=== PATIENT | female | born 1950 | race Caucasian/White ===

== ENCOUNTER 2017-02-27 18:20 | Inpatient (IN) | payer MEDICARE, OTHER ==
[~2017-02-27] VITALS: Ht 172.7 cm; Wt 88.4 kg
--- NOTE | ~2017-02-27 | CON ---
PATIENT'S NAME: MILVIA GREGORY [facility] AGE: 67 Y [address] ROOM: [place] [address] LOCATION: GPCU ADMIT DATE: 02/27/2017 Consultation DISCHARGE DATE: FAMILY PHYSICIAN: BEBA CASH MD ATTENDING PHYSICIAN: KVNG HAIDER DATE OF CONSULTATION: 02/28/2017 REASON FOR CONSULT: Jaundice, suspected choledocholithiasis. HISTORY OF PRESENT ILLNESS: This is a 67-year-old female, who was admitted through emergency room in view of severe abdominal pain. She was evaluated by ER physician and underwent blood work, which revealed evidence of biliary obstruction with total bilirubin of 2.8, alkaline phosphatase 145, AST 1634, and ALT 1174. Her amylase and lipase values were normal. A CT scan of the abdomen revealed cholelithiasis and intrahepatic biliary dilatation. The patient was admitted to the hospitalist's service, and has done well post-hospitalization with no evidence of fever or chills, but followup labs continued to show elevated liver test with total bilirubin up to 3.2 this morning. The patient is otherwise pain free. Her AST and ALT are markedly elevated. PAST MEDICAL HISTORY: She denies any similar issues with abdominal pain. She does have history of colon polyp and hypothyroidism. MEDICATIONS: As noted in MAR. SOCIAL HISTORY: Negative for smoking, quit several years ago. Denies alcohol or drug abuse. FAMILY HISTORY: Colon cancer. REVIEW OF SYSTEMS: The 10-point review of system otherwise negative except as noted in the HPI. PHYSICAL EXAMINATION: GENERAL: A well-developed, well-nourished female, in no distress. She is afebrile. VITAL SIGNS: Stable. HEENT: Reveals mildly icteric sclerae bilaterally. Pupils round and reactive. PATIENT'S NAME: MILVIA GREGORY [facility] AGE: 67 Y [address] ROOM: [place] [address] LOCATION: GPCU ADMIT DATE: 02/27/2017 Consultation DISCHARGE DATE: FAMILY PHYSICIAN: BEBA CASH MD ATTENDING PHYSICIAN: KVNG HAIDER NECK: Supple without palpable nodes. CHEST: Clear to auscultation. HEART: S1, S2 normal. ABDOMEN: Soft and benign without palpable masses or tenderness. EXTREMITIES: No edema. NEUROLOGIC: Awake, alert, appropriate without any focal deficits. DIAGNOSTIC STUDIES: CT scan of the abdomen revealing cholelithiasis and intrahepatic biliary dilatation. Liver function tests elevated with total bilirubin of 3.2, elevated ALT and AST values as noted above. ASSESSMENT AND PLAN: A 67-year-old female presenting with abdominal pain, elevated liver function tests, cholelithiasis, and intrahepatic biliary dilatation highly suggestive of underlying choledocholithiasis. The patient will require cholecystectomy after her common bile duct has been cleared. I have explained to her the procedure of an ERCP. Information is provided for her to review the risks and complications, which can include pancreatitis, bleeding, blood transfusion, surgery, perforation, and prolonged hospitalization. These are all discussed with the patient. All her questions are answered, and she is in agreement for the above-stated procedure. Thank you for this consult. NORY CANCINO MD AM/adebayo /[id number] d: 02/28/17928 t: 02/28/17 1600, CONSULTATION REPORT
--- NOTE | ~2017-02-27 | HP ---
[facility] AGE: 67 Y [address] ROOM: [place] [id number] LOCATION: GPCU ADMIT DATE: 02/27/2017 History & Physical DISCHARGE DATE: FAMILY PHYSICIAN: BEBA CASH MD ATTENDING PHYSICIAN: KVNG HAIDER DATE OF SERVICE: CHIEF COMPLAINT: Abdominal pain. HISTORY OF PRESENT ILLNESS: A 67-year-old lady with a past medical history of hypothyroidism, started having abdominal pain this morning, which started about 6 in the morning, earlier located in the lower abdomen, crampy in nature, progressively getting worse, insidious in onset, migrated upwards to the epigastrium, became achy, progressed to 10/10, which triggered her visit to the emergency department, relieved with medication in the emergency department, associated with some nausea, but no emesis, also associated with pale stools and darkening of urine, not associated with any fever or chills. Further inquiry did not reveal any chest pain, any palpitations, any shortness of breath, cough, sputum production, headache, trouble with eyes, trouble swallowing, burning on urination, constipation, diarrhea, or any extremity swelling. REVIEW OF SYSTEMS: All other systems reviewed and were negative except what is mentioned in the HPI. ALLERGIES: THE PATIENT IS ALLERGIC TO PENICILLIN. 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 MEDICATIONS: Being reconciled right now. SOCIAL HISTORY: Quit smoking about 11 years ago. No alcohol or drug abuse. FAMILY HISTORY: Significant for colon cancer in mother as well as in grandfather. Father from myocardial infarction. PHYSICAL EXAMINATION: PATIENT'S NAME: MILVIA GREGORY [facility] AGE: 67 Y [address] ROOM: [address] [address] LOCATION: GPCU ADMIT DATE: 02/27/2017 History & Physical DISCHARGE DATE: FAMILY PHYSICIAN: BEBA CASH MD ATTENDING PHYSICIAN: KVNG HAIDER VITAL SIGNS: Blood pressure 144/67, pulse 58, respiratory rate of 15, and satting 97% on room air. GENERAL: No acute distress. Alert and oriented x3. HEENT: Head: Atraumatic, normocephalic. Eyes: Nonicteric. No pallor. Oropharynx: Moist mucous membranes. CARDIOVASCULAR: S1, S2. No murmurs, gallops, or rubs. LUNGS: Clear to auscultation bilaterally. ABDOMEN: Soft, nontender, nondistended. Bowel sounds present. EXTREMITIES: No clubbing, cyanosis, or edema. PSYCH: Normal affect, mood, and speech. NEUROLOGIC: Cranial nerves 2 through 12 intact. No motor or sensory deficits. MUSCULOSKELETAL: No muscle tenderness or joint swelling noted. SKIN: No blemishes or bruises noted. LYMPHATICS: No lymphedema, lymphangitis, or lymphadenopathy noted. ENDOCRINE: No thyromegaly or myxedema noted. IMAGING DATA: CT scan of the abdomen was done in the emergency department, which is suggestive of multiple gallstones as well as intrahepatic dilatation. It raises radiological possibility of acute cholecystitis. LABORATORY DATA: CBC was unremarkable. BMP was impressive for a bilirubin of 2.8, alkaline phosphate 145, ALT 1174, and AST 1634. UA was also done, which was only remarkable for bilirubin in the urine. ASSESSMENT: 1. Acute biliary obstruction. 2. Choledocholithiasis. 3. Elevated liver enzymes. 4. Hypothyroidism. PLAN: We are going to admit this lady for inpatient. At this point, it appears that her gallstone has passed as she is pain-free though she have received 50 mcg of fentanyl. No fever is reported. We are going to start her on some IV hydration and pain and nausea control. GI consultation will be made in the morning for further recommendation regarding MRCP versus ERCP. We will repeat liver enzymes in the morning to see the trend. She will need to have cholecystectomy done, which will be decided by the General Surgery consultation. No DVT prophylaxis. Regular diet. N.p.o. midnight. Activity as tolerated. We will repeat a lipase level in the morning. If any fever develops, we will add antibiotics to the medications. PATIENT'S NAME: MILVIA GREGORY [facility] AGE: 67 Y [address] ROOM: [place] [address] LOCATION: [facility] ADMIT DATE: 02/27/2017 History & Physical DISCHARGE DATE: FAMILY PHYSICIAN: BEBA CASH MD ATTENDING PHYSICIAN: KVNG HAIDER I spent 40 minutes providing direct care to the patient explaining the nature of the disease and pathophysiology and also the plan including GI consultation as well as General Surgery. Her questions were addressed and she was in agreement to the plan. MD CLEMENTINA HERNANDEZ/modl /[id number] D: [id number] T: [id number] HISTORY & PHYSICAL
--- NOTE | ~2017-02-27 | DS ---
PATIENT'S NAME: MILVIA GREGORY [facility] AGE: 67 Y [address] ROOM: [place] [address] LOCATION: GPCU ADMIT DATE: 02/27/2017 Discharge Summary DISCHARGE DATE: 03/01/2017 FAMILY PHYSICIAN: Miya Hager MD ATTENDING PHYSICIAN: Kym Aguero PRINCIPAL DIAGNOSES: 1. Choledocholithiasis. 2. Transaminitis. 3. Common bile duct stone. 4. Gallstone pancreatitis. HOSPITAL COURSE: This is a 67-year-old female who presented with right upper quadrant pain, and workup showed gallstones with common bile duct involvement, and LFT's raised consistent with an obstructive pattern. The patient was admitted and managed conservatively initially and was promptly seen by GI and had attempted an ERCP procedure, however, ERCP was deemed to be technically difficult and it was postponed. The patient the following day had a successful laparoscopic cholecystectomy. At this point, after discussion with Dr. Cunningham from Gastroenterology, it is recommended that the patient be transferred to [place], and she can have an ERCP attempt tomorrow. Discussed this plan with Dr. Cunningham as well as the patient in detail, and the patient was subsequently transferred over to [place] today. PHYSICAL EXAMINATION: GENERAL: On my exam, the patient is awake, alert, and oriented x3, in no acute distress. HEART: S1 and S2. Regular rate and rhythm. ABDOMEN: Soft, nontender, and nondistended. EXTREMITIES: Without edema. NEUROLOGIC: Grossly nonfocal. MEDICATIONS: Per SEP. DISPOSITION: Transferred to [place] Inpatient with a planned ERCP to be done the next day. Greater than 30 minutes were spent in discharge planning and facilitating transfer. MD INNA SWANSON/brittl PATIENT'S NAME: MILVIA GREGORY [facility] AGE: 67 Y [address] ROOM: [place] [address] LOCATION: GPCU ADMIT DATE: 02/27/2017 Discharge Summary DISCHARGE DATE: 03/01/2017 FAMILY PHYSICIAN: Miya Hager MD ATTENDING PHYSICIAN: Kym Aguero /[id number] d: 03/02/17 0302 t: 03/04/17 1401, DISCHARGE SUMMARY
--- NOTE | ~2017-02-27 | ER ---
PATIENT'S NAME: MILVIA GREGORY [facility] AGE: 67 Y [address] ROOM: [place] [address] LOCATION: GPCU ADMIT DATE: 02/27/2017 ER/Outpatient Report DISCHARGE DATE: FAMILY PHYSICIAN: BEBA CASH MD ATTENDING PHYSICIAN: KVNG HAIDER Time of Arrival: 1822 hours. Time of Evaluation: 1830 hours. CHIEF COMPLAINT: Abdominal pain. HISTORY OF PRESENT ILLNESS: The patient states that she began having lower abdominal pain this morning. She had been with some family members in [place], drove home, was able to have a normal bowel movement, but continued to have lower abdominal pain. She reports she has been nauseated, but no vomiting. She states in the last hour the pain has become much more progressive and worse, is going through to her back. She denies any injury. She has not had fever or chills. Denies any pain or frequency of urine. States her last bowel movement was this morning, it was normal and no blood was noted. ALLERGIES: PENICILLIN. CURRENT MEDICATIONS: On her chart and reviewed by me. PAST MEDICAL HISTORY: Hypothyroidism. PAST SURGICAL HISTORY: Hysterectomy with ovaries intact and thyroidectomy. SOCIAL HISTORY: She presents to the ER accompanied by her . Denies use of tobacco, drugs, or alcohol. REVIEW OF SYSTEMS: Negative other than those mentioned in the HPI. PHYSICAL EXAMINATION: VITAL SIGNS: She weighed 87.5 kg. Blood pressure was 144/67, pulse of 58, respirations 18, temperature of 98.7 tympanic, and O2 saturation was 99% on room air. PATIENT'S NAME: MILVIA GREGORY [facility] AGE: 67 Y [address] ROOM: [address] [address] LOCATION: GPCU ADMIT DATE: 02/27/2017 ER/Outpatient Report DISCHARGE DATE: FAMILY PHYSICIAN: BEBA CASH MD ATTENDING PHYSICIAN: KVNG HAIDER GENERAL: She is awake, alert, and oriented x4. SKIN: [place], warm, and dry. RESPIRATIONS: Even and nonlabored. Lung sounds are clear throughout. HEART: Regular rate and rhythm. ABDOMEN: Soft and nondistended. Bowel sounds are hypoactive. She is tender to palpate in the lower quadrants. No pain in the upper quadrants. EMERGENCY ROOM COURSE: Saline lock was initiated. Fluids of normal saline were started at a wide- open rate. She was given Zofran 4 mg IV and fentanyl 50 mcg IV. Lab work was drawn. CBC is within normal limits. Chem panel: Sodium is 139, potassium is 3.7, chloride 107. Her BUN was 11 with a creatinine 0.6. Her total bilirubin is 2.8. Alkaline phosphatase is 145, AST is 1634, ALT is 1174. Amylase is 23 with a lipase of 163. Her lactate was 1.5 and procalcitonin was 0.09. She did give a clean-catch UA with 25 leukocytes, white count was 5 to 10, bacteria was few. CT scan of the abdomen was completed. Radiologist reports that she has cholelithiasis with gallbladder wall thickening. She has mild intrahepatic biliary dilatation, scattered colon diverticula, there is no free air, and no findings of a bowel obstruction or appendicitis. The patient was reviewed with Dr. Ventura. Dr. Bowles was contacted, he aske I call the hospitalist. Dr. Haider was contacted, he did come and evaluate the patient. IMPRESSION: Biliary obstruction. PLAN: The patient was placed inpatient for care of the hospitalist. The patient and her were notified of the plan and they agree with the plan. JAZMÍN MENDOZA APRN FOR MD KAREEM QUINTERO/adebayo /[id number] d: 02/28/17 0238 t: 03/02/17 1831, OUTPATIENT REPORT
--- NOTE | ~2017-02-27 | OR ---
PATIENT'S NAME: MILVIA GREGORY [facility] AGE: 67 Y [address] ROOM: [place] [address] LOCATION: GPCU ADMIT DATE: 02/27/2017 OR/Procedure Report DISCHARGE DATE: FAMILY PHYSICIAN: BEBA CASH MD ATTENDING PHYSICIAN: KVNG HAIDER SURGEON: Zeke Hodgson MD RIPENING ROOM HAND: DATE OF PROCEDURE: 03/01/2017 PREOPERATIVE DIAGNOSES: 1. Cholecystitis, cholelithiasis. 2. Choledocholithiasis. POSTOPERATIVE DIAGNOSES: 1. Cholecystitis, cholelithiasis. 2. Choledocholithiasis. PROCEDURES PERFORMED: Laparoscopic cholecystectomy with intraoperative cholangiogram. ANESTHESIA: General with 20 mL of 0.5% Marcaine with epinephrine. SPECIMEN: Gallbladder with stones and acute inflammatory changes. CHOLANGIOGRAM FINDINGS: Correct anatomy identified. Free floating distal common bile duct filling defect with mild dilatation, and contrast into duodenum. INDICATIONS: The patient is a pleasant 67-year-old young lady, who about 48 to 72 hours ago developed her first attack of biliary colic. Subsequently, it has progressed throughout the day and presented that evening to [facility] ER with abdominal pain in the epigastrium. CT showed edematous gallbladder with big stone, and mildly prominent common bile duct. The patient yesterday underwent an ERCP attempt and pancreatic duct placement. Sphincterotomy was not performed until final confirmation of the common bile duct stone. So I was asked to remove the gallbladder, perform the cholangiogram for confirmation. DESCRIPTION OF PROCEDURE: After informed consent, the patient was taken to the operating room, and after general endotracheal anesthesia, the patient's abdomen was prepped and draped into a sterile field. A time-out was performed. We confirmed the patient, planned procedure, and administration of preop antibiotics. Local anesthetic was infiltrated prior to each incision. The first one was made below the umbilicus, carried down to identify the anterior fascia through which a Veress needle was inserted. Pneumoperitoneum PATIENT'S NAME: MILVIA GREGORY [facility] AGE: 67 Y [address] ROOM: [place] [address] LOCATION: GPCU ADMIT DATE: 02/27/2017 OR/Procedure Report DISCHARGE DATE: FAMILY PHYSICIAN: BEBA CASH MD ATTENDING PHYSICIAN: KVNG HAIDER. Trocar and laparoscope were inserted. Safe entry was noted. Under direct vision, the remaining trocars were placed. The gallbladder was then viewed and grasped at the fundus. It was edematous and distended. The extremely edematous adhesions of the hepatoduodenal ligament were stripped down until we isolated out the cystic artery as well as the mildly dilated cystic duct. We placed three clips on the cystic artery and a clip on the gallbladder union with the cystic duct. We did a cystotomy. We placed a cholangiogram catheter, and we used Isovue contrast to obtain the above- mentioned findings. We then removed the catheter, clipped the cystic duct x3 distally. We divided the cystic artery and then removed the gallbladder with electrocautery and placed into an EndoCatch bag and brought out through the umbilical incision. We irrigated the right upper quadrant until clear. Staple lines intact. We used Endo Close with 0 Vicryl to close the subxiphoid fascial defect, and we used 0 Vicryl to close the umbilical fascial defect, after trocars and pneumoperitoneum were removed. The wound was closed with subcuticular 4-0 Vicryl. Steri-Strips and sterile dressings applied. The patient tolerated the procedure well and transferred to the recovery room in stable condition. ZEKE HODGSON MD WTRita/modl /[id number] d: 03/01/17 1333 t: 03/11/17 0953, OPERATIVE SUMMARY
--- NOTE | ~2017-02-27 | HP ---
PATIENT'S NAME: MILVIA GREGORY [facility] AGE: 67 Y [address] ROOM: [address] [address] LOCATION: GPCU ADMIT DATE: 02/27/2017 History & Physical DISCHARGE DATE: FAMILY PHYSICIAN: BEBA CASH MD ATTENDING PHYSICIAN: KVNG HAIDER DATE OF SERVICE: 02/28/2017 CHIEF COMPLAINT: Abdominal pain, cholecystitis, cholelithiasis, possible choledocholithiasis. HISTORY OF PRESENT ILLNESS: The patient is a pleasant 67-year-old young lady, who yesterday morning, woke up with abdominal pain, epigastrium, crampy in nature, progressed to 10/10. The [place] of [place], but presented to [facility] ER, was evaluated, and found to have mildly elevated white count and bilirubin. CT scan shows some gallbladder wall thickening, some stones, normal pancreas. She was admitted to the hospital per the Hospitalist Service, and this morning, her bilirubin was up to 3.2. Her white count was normal, but AST and ALT elevated. Amylase normal. She underwent an ERCP attempt by Dr. Cunningham, and he did not want to be too aggressive and perform a sphincterotomy at this point, so he left a pancreatic stent in it. The plan is now to perform removal of gallbladder and assessment of the common bile duct with intraoperative cholangiogram. The patient denies any prior history of biliary colic symptoms, pancreatitis, alcohol abuse, hepatitis, peptic ulcer disease, or kidney stones. She says she has only had a vaginal hysterectomy, and her ovaries are in place. PAST MEDICAL HISTORY: Illnesses: 1. Hypothyroidism. 2. History of dysplastic polyp of the colon. 3. Cholecystitis, cholelithiasis, possible choledocholithiasis. Operations: 1. Colonoscopy 5 years ago, due for another one this month. 2. Vaginal hysterectomy. SOCIAL HISTORY: Quit smoking 11 years ago and has no IV drug use. FAMILY HISTORY: Mom had of metastatic colon cancer. Colon cancer is on her father's side, as well as her father from myocardial infarction. REVIEW OF SYSTEMS: PATIENT'S NAME: MILVIA GREGORY [facility] AGE: 67 Y [address] ROOM: [id number] [place], [place] [address] [facility] ADMIT DATE: 02/27/2017 History & Physical DISCHARGE DATE: FAMILY PHYSICIAN: BEBA CASH MD ATTENDING PHYSICIAN: KVNG HAIDER She is currently status post ERCP attempt. She says she remains nauseous, in mild discomfort in the epigastrium. She denies any recent change in her weight. No change in vision or hearing. She has stable hypothyroid condition, being treated. The patient denies any breast masses or nipple discharge. No shortness of breath or productive cough. Denies any lower abdominal pain. No diarrhea. No dysuria or hematuria. No swollen joints. PHYSICAL EXAMINATION: GENERAL: She is a pleasant 67-year-old young lady who is oriented to person, place, and time. She is a little groggy post procedure. HEENT: Her head is normocephalic. Sclerae are nonicteric that I can tell. Mucous membranes are dry. NECK: Supple. LUNGS: Clear to auscultation. HEART: Normal sinus rhythm. ABDOMEN: Mildly obese. Positive bowel sounds. She is slightly tender across the epigastrium, little tympanitic to percussion. EXTREMITIES: She has 2/2 femoral and dorsalis pedis pulses. No peripheral edema. IMPRESSION: Biliary colic symptoms with evidence of cholecystitis, cholelithiasis, and possible choledocholithiasis. After incomplete ERCP, we will go ahead and perform laparoscopic cholecystectomy and assessment of the common bile duct with intraoperative cholangiogram. If a common duct stone is found and Dr. Cunningham is not objectionable, then proceed with sphincterotomy and more aggressive attempt at duct evaluation. I explained the procedure, benefits, and risks including, but not limited to infection, abdominal wall hernias, hollow viscus injury, bile leak, bleeding requiring surgery or transfusion, common bile duct injury, cardiac or pulmonary decompensation, and loss of life. We will review again on the morning of surgery. The patient agrees to proceed on 03/01/2017. SHWETHA HODGSON MD WTS/modl /[id number] D: [id number] T: [id number] HISTORY & PHYSICAL
[2017-02-27 18:49] LABS: BLOOD URINE NEGATIVE /UL (NEGATIVE); GLUCOSE URINE NEGATIVE (NEGATIVE); KETONE URINE NEGATIVE (NEGATIVE); LEUKOCYTES URINE 25 /UL (NEGATIVE); NITRITE URINE NEGATIVE (NEGATIVE); PROTEIN URINE NEGATIVE (NEGATIVE); TURBIDITY URINE CLEAR (CLEAR); UROBILINOGEN URINE 4 mg/dL (NORMAL)
[2017-02-27 18:57] LABS: COLOR URINE OTHER (YELLOW)
[2017-02-27 19:02] LABS: BASOPHIL % 0.1 %; EOSINOPHIL % 0.2 %; HEMATOCRIT 42.1 % (33.0-46.0); HEMOGLOBIN 14.3 g/dL (10.0-15.0); IMMATURE GRANULOCYTE % 0.2 %; LYMPHOCYTE # 1.3 K/uL (0.8-4.0); MCH 30.5 pg (27.0-34.0); MCV 89.8 fl (83.0-98.0); MONOCYTE # 0.6 K/uL (0.0-1.0); MONOCYTE % 6.7 %; NEUTROPHIL # (ANC) 6.4 K/uL (1.8-7.8); NEUTROPHIL % 76.8 %; NRBC % 0 /100WBC (0-0.00); PLATELET COUNT 297 K/uL (150-450); RBC 4.69 M/uL (3.50-5.50); RDW-CV 12.8 % (11.9-14.6); WBC 8.4 K/uL (4.0-11.0)
[2017-02-27 19:11] LABS: BACTERIA URINE FEW (NEGATIVE); RBC URINE 0-2 #/HPF (NEGATIVE)
[2017-02-27 19:27] LABS: ANION GAP 10.7 (10.0-19.0); CREATININE 0.8 mg/dL (0.5-1.1); POTASSIUM 3.7 mMol/L (3.7-5.1); TOTAL BILIRUBIN 2.8 mg/dL (0.0-1.5); TOTAL PROTEIN 8.2 g/dL (6.0-8.4)
[2017-02-27] MEDS ORDERED: THERAGRAN-M1 TAB PO (21:35)
[2017-02-27] MEDS ORDERED: LEVOTHROID (SY50 MCG PO (21:35)
[2017-02-27] MEDS ORDERED: VITAMIN D35000 UNI1 PO (21:36)
[2017-02-27] MEDS ORDERED: ZYRTEC10 MG PO (21:36)
[2017-02-27] MEDS ORDERED: CITRACAL950 MG PO (21:36)
[2017-02-28 04:24] LABS: ALK PHOS 133 IU/L (33-138); ANION GAP 8.8 (10.0-19.0); BLOOD UREA NITROGEN 8 mg/dL (6-24); CHLORIDE 110 mMol/L (96-110); CO2 28 mMol/L (22-32); CREATININE 0.6 mg/dL (0.5-1.1); POTASSIUM 3.8 mMol/L (3.7-5.1); SODIUM 143 mMol/L (135-145); TOTAL BILIRUBIN 3.2 mg/dL (0.0-1.5); TOTAL PROTEIN 6.1 g/dL (6.0-8.4)
[2017-02-28 04:27] LABS: ALT 1166 IU/L (12-78); AST 1238 IU/L (10-40)
[2017-03-01 03:53] LABS: BASOPHIL % 0.2 %; EOSINOPHIL % 0.7 %; HEMATOCRIT 35.3 % (33.0-46.0); HEMOGLOBIN 11.6 g/dL (10.0-15.0); IMMATURE GRANULOCYTE % 0.2 %; LYMPHOCYTE # 1.6 K/uL (0.8-4.0); LYMPHOCYTE % 27.3 %; MCH 30.1 pg (27.0-34.0); MCHC 32.9 gm/dL (32.0-36.5); MCV 91.7 fl (83.0-98.0); MONOCYTE # 0.5 K/uL (0.0-1.0); NEUTROPHIL # (ANC) 3.7 K/uL (1.8-7.8); NEUTROPHIL % 63.6 %; NRBC % 0 /100WBC (0-0.00); PLATELET COUNT 244 K/uL (150-450); RBC 3.85 M/uL (3.50-5.50); RDW-CV 13.2 % (11.9-14.6); WBC 5.9 K/uL (4.0-11.0)
[2017-03-01 04:17] LABS: ALK PHOS 153 IU/L (33-138); ANION GAP 9.5 (10.0-19.0); BLOOD UREA NITROGEN 7 mg/dL (6-24); CALCIUM 8.2 mg/dL (8.5-10.5); CHLORIDE 110 mMol/L (96-110); CO2 27 mMol/L (22-32); CREATININE 0.6 mg/dL (0.5-1.1); POTASSIUM 3.5 mMol/L (3.7-5.1); SODIUM 143 mMol/L (135-145); TOTAL PROTEIN 6.3 g/dL (6.0-8.4)
[2017-03-01 04:18] LABS: ALT 954 IU/L (12-78); AST 603 IU/L (10-40); TOTAL BILIRUBIN 4.4 mg/dL (0.0-1.5)
[2017-03-01 14:37] LABS: BILIRUBIN URINE NEGATIVE (NEGATIVE); BLOOD URINE NEGATIVE /UL (NEGATIVE); COLOR URINE YELLOW (YELLOW); GLUCOSE URINE NEGATIVE (NEGATIVE); KETONE URINE 150 mg/dL (NEGATIVE); LEUKOCYTES URINE NEGATIVE /UL (NEGATIVE); NITRITE URINE NEGATIVE (NEGATIVE); PROTEIN URINE NEGATIVE (NEGATIVE); TURBIDITY URINE CLEAR (CLEAR); UROBILINOGEN URINE 1 mg/dL (NORMAL)
== END 2017-03-01 14:55 | disposition hospice, home (50) | DRG 419 ==
LOC: GMED 18:20 → GPCU 20:32
PROVIDERS: Internal Medicine; Nurse Practitioner Family; Surgery; ADMIT Internal Medicine
PROC: BF10YZZ Fluoroscopy of Bile Ducts using Other Contrast (ICD-10-PCS; principal; 2017-03-01)
PROC: 0FT44ZZ Resection of Gallbladder, Percutaneous Endoscopic Approach (ICD-10-PCS; principal; 2017-03-01)
DX: K80.11 Calculus of gallbladder with chronic cholecystitis with obstruction (principal); E03.9 Hypothyroidism, unspecified; Z88.0 Allergy status to penicillin; Z87.891 Personal history of nicotine dependence; R79.89 Other specified abnormal findings of blood chemistry
CPT/HCPCS: C1769; C2625; J1335; J1610; J2405; J2550; J3010; J7030; J7120; Q9967